=== PATIENT | male | born 1975 | race Caucasian/White ===

== ENCOUNTER 2016-10-02 08:26 | Emergency (ER) | payer BC ==
[2016-04-18 11:48] VITALS: BMI 34.3
[~2016-10-02 08:26] MED LIST: HYDROCODONE-APA1 TAB PO; METOPROLOL TART25 MG PO; NORVASC10 MG PO; PRINIVIL20 MG PO
[2016-10-02 09:33] LABS: BASOPHILS 0.1 % (0.0-2.0); EOSINOPHILS 0.2 % (0-7); HEMATOCRIT 42.8 % (42.0-54.0); HEMOGLOBIN 14.3 g/dL (13.5-17.5); IMMATURE GRANULOCYTES 0.4 % (0-5); MCH 32.4 pg (26.0-34.0); MCHC 33.4 g/dL (31.0-37.0); MCV 97.1 fL (80.0-100.0); MEAN PLATELET VOLUME 10.9 fL (7.4-10.4); MONOCYTES 9.7 % (2-11); NEUTROPHILS 80.6 % (40-80); RBC 4.41 10x6/uL (4.20-6.10); RDW 13.1 % (11.5-14.5); WBC 17.7 10x3/uL (4.8-10.8)
[2016-10-02 09:35] LABS: PLATELET COUNT 278 10x3/uL (130-400)
[2016-10-02 09:53] LABS: APPEARANCE HAZY (CLEAR); BILIRUBIN NEGATIVE (NEGATIVE); COLOR YELLOW (YELLOW); GLUCOSE NEGATIVE (NEGATIVE); KETONE NEGATIVE (NEGATIVE); LEUKOCYTE ESTERASE NEGATIVE (NEGATIVE); NITRITE NEGATIVE (NEGATIVE); PROTEIN NEGATIVE (NEGATIVE); UROBILINOGEN NORMAL (NORMAL); WHITE CELLS - URINE NSEEN /hpf (0-5)
[2016-10-02 09:54] LABS: BACTERIA FEW /hpf (NONE SEEN); RED CELLS - URINE OCC /hpf (0-5)
== END 2016-10-02 09:30 | disposition home or self-care (01) ==
LOC: D.ER 08:26
PROVIDERS: Family Medicine
DX: L05.01 Pilonidal cyst with abscess (principal); I10 Essential (primary) hypertension

== ENCOUNTER → 2016-10-04 19:28 | Outpatient (CLI) | payer BC ==
[2016-04-18 11:48] VITALS: BMI 34.3
[2016-10-12 17:12] LABS: AEROBE ID Final report (())
== END | disposition home or self-care (01) ==
LOC: D.LABREF 19:28
PROVIDERS: Surgery
DX: K61.1 Rectal abscess (principal)